=== PATIENT | male | born 1990 | race Caucasian/White ===

== ENCOUNTER 2018-05-07 15:36 | Emergency (ER) | payer MEDICAID ==
[~2018-05-07] VITALS: Ht 185.4 cm; Wt 75.0 kg
[2018-05-07 16:11] LABS: URINE AMPHETAMINE SCREEN NEGATIVE (Neg); URINE BARBITUATE SCREEN NEGATIVE (Neg); URINE BENZODIAZEPINES SCREEN NEGATIVE (Neg); URINE CANNABINOID SCREEN POSITIVE (Neg); URINE COCAINE SCREEN NEGATIVE (Neg); URINE METHADONE SCREEN NEGATIVE (Neg); URINE OPIATE SCREEN NEGATIVE (Neg); URINE PHENCYCLIDINE SCREEN NEGATIVE (Neg)
--- NOTE | 2018-05-07 16:12 | NUR ---
LAB CALLED TO BEDSIDE TO DRAW PER ORDERS.
[2018-05-07 16:25] LABS: CLARITY,URINE SLIGHTLY CLOUDY (Clear); COLOR,URINE YELLOW (Yellow); GLUCOSE, URINE NEGATIVE (Neg); KETONES,URINE TRACE mg/dl (Neg); LEUKOCYTE ESTERASE ,URINE NEGATIVE (Neg); NITRITES, URINE NEGATIVE (Neg); OCCULT BLOOD,URINE NEGATIVE (Neg); PH,URINE 6.5 (4.8-8.0); PROTEIN,URINE TRACE mg/dl (Neg); UROBILINOGEN,URINE 0.2 E.U/dL (0.2-1.0)
[2018-05-07 16:27] LABS: UA COLLECTION TYPE NON-SPECIFIED
[2018-05-07 16:39] LABS: BASOPHILS % (AUTO) 0.4 % (0-1); EOSINOPHILS # (AUTO) 0.2 X10'3 (0-0.9); EOSINOPHILS % (AUTO) 2.5 % (0-6); HEMATOCRIT 49.1 % (42.0-52.0); LYMPHOCYTES # (AUTO) 2.6 X10'3 (1.1-4.8); LYMPHOCYTES % (AUTO) 32.6 % (21-51); MEAN CORPUSCULAR HEMOGLOBIN 31.4 PG (27.0-31.0); MEAN CORPUSCULAR HGB CONC 34.7 g/dL (33.0-36.5); MEAN CORPUSCULAR VOLUME 90.5 FL (78-98); MEAN PLATELET VOLUME 9.3 FL (7.4-10.4); MONOCYTES % (AUTO) 12.2 % (2-12); NEUTROPHILS # (AUTO) 4.1 X10'3 (1.8-7.7); NEUTROPHILS % (AUTO) 52.3 % (42-75); PLATELET COUNT 217 X10'3 (140-440); RED BLOOD COUNT 5.42 X10'6 (4.70-6.10); RED CELL DISTRIBUTION WIDTH 12.8 % (11.5-14.5); WHITE BLOOD COUNT 7.9 X10'3 (4.5-11.0)
[2018-05-07 16:40] LABS: MUCUS STRANDS MANY /LPF (Neg); SQUAMOUS EPITHELIAL CELL,UR FEW /LPF (FEW)
[2018-05-07 16:41] LABS: BACTERIA,URINE FEW /HPF (Neg); RBC,URINE 0-2 /HPF (0-2); SPERM FEW /HPF (NEGATIVE); TRANSITIONAL EPI CELLS,URINE FEW /HPF; WBC,URINE 0-4 /HPF (0-4)
[2018-05-07 17:02] LABS: ALANINE AMINOTRANSFERASE 19 U/L (12-78); ALBUMIN 4.4 G/DL (3.4-5.0); ALBUMIN/GLOBULIN RATIO 1.3 (1.1-1.5); ALKALINE PHOSPHATASE 60 IU/L (46-116); ANION GAP 9 (8-16); ASPARTATE AMINO TRANSFERASE 11 U/L (10-37); BILIRUBIN,TOTAL 1.9 MG/DL (0.1-1.0); BLOOD UREA NITROGEN 17 MG/DL (7-18); BUN/CREATININE RATIO 17.3 (5.4-32.0); CALCIUM 9.3 MG/DL (8.5-10.1); CHLORIDE 104 MMOL/L (99-107); CREATININE 0.98 MG/DL (0.60-1.10); ETHANOL < 0.010 GM/DL (0.0-0.010); GLUCOSE 86 MG/DL (70-104); POTASSIUM 4.3 MMOL/L (3.5-5.1); SODIUM 141 MMOL/L (135-145); TOTAL CARBON DIOXIDE 27.7 MMOL/L (24-32); TOTAL PROTEIN 7.7 G/DL (6.4-8.2); eGFR > 90 ML/MIN
[2018-05-07] MEDS ORDERED: CLON-527 PO (17:10)
[2018-05-07] MEDS ORDERED: clonazePAM 1mg tablet PO PRN (17:45)
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
--- NOTE | 2018-05-07 19:20 | NUR ---
TELE PSYCH IN PROGRESS
--- NOTE | 2018-05-07 20:25 | NUR ---
PT REQUESTING A BIBLE, STAFF FOUND ONE FOR HIM TO READ.
--- NOTE | 2018-05-07 22:52 | NUR ---
MEDICATED FOR SLEEP WITH KLONIPIN.
--- NOTE | 2018-05-08 06:30 | NUR ---
PT SLEEPING, COVERED UP WITH BLANKET.
--- NOTE | 2018-05-08 10:27 | NUR ---
PT'S MOTHER CALLED DION LEONARD .
--- NOTE | 2018-05-08 10:39 | NUR ---
PT'S MOTHER CALLS FOR UPDATE: DION LEONARD, . PT SLEEPING. PT WAITING PLACEMENT.
--- NOTE | 2018-05-08 13:07 | NUR ---
PT AWAKE AND GIVEN MEAL TRAY.
--- NOTE | 2018-05-08 15:40 | NUR ---
PT'S FATHER ARRIVES FOR A VISIT.
--- NOTE | 2018-05-08 17:13 | NUR ---
PT HAS BEEN ACCEPTED AT [facility] BY DR SPEARS. BRAND LEADER WILL BE HERE IN 45 MIN.
--- NOTE | 2018-05-08 18:08 | NUR ---
CHARGE HAND ARRIVES TO TAKE PT TO [facility]. PT GIVEN BELONGINGS BACK, CELL PHONE AND TECH GOES OVER HIS BELONGINGS LIST. REGISTRATION IS BRINGING HIS WALLET FROM THE [facility].
[2018-05-08 18:23] VITALS: BP 123/8
== END 2018-05-08 18:27 ==
LOC: ER 15:37
DX: F32.9 Major depressive disorder, single episode, unspecified (principal); R45.851 Suicidal ideations; Z79.899 Other long term (current) drug therapy
CPT/HCPCS: 36415; 80053; 80305; 80320; 81001; 84443; 85025; 99285